=== PATIENT | female | born 1970 | race Native Hawaiian/Other Pacific Islander ===

== ENCOUNTER 2021-12-18 15:04 | Emergency (ER) | payer OTHER ==
[~2021-12-18] VITALS: Ht 172.7 cm; Wt 76.7 kg
[2021-12-18] MEDS ORDERED: CYCL10TA35 PO (19:08)
[2021-12-18 19:40] VITALS: BP 133/83; TEMP 97.1
== END 2021-12-18 19:40 | disposition home or self-care (01) ==
LOC: ED 15:04 → EDSTATUS 15:04 → ED 19:40
DX: S20.224A Contusion of middle back wall of thorax, initial encounter (principal); W18.49XA Other slipping, tripping and stumbling without falling, initial encounter; Y92.89 Other specified places as the place of occurrence of the external cause
CPT/HCPCS: 96372; 99283; J2360

== ENCOUNTER 2022-05-25 15:02 | Outpatient (CLI) | payer OTHER ==
[~2022-05-25 15:02] MED LIST: CYCL10TA35 PO
== END 2022-05-25 19:45 | disposition home or self-care (01) ==
LOC: RAD 15:02
PROVIDERS: ATTEND Internal Medicine Endocrinology, Diabetes & Metabolism
DX: J68.9 Unspecified respiratory condition due to chemicals, gases, fumes and vapors (principal); J44.9 Chronic obstructive pulmonary disease, unspecified